=== PATIENT | male | born 2000 | race Caucasian/White ===

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

== ENCOUNTER 2022-04-01 18:06 | Emergency (ER) | payer OTHER, SELFPAY ==
--- NOTE | ~2022-04-01 | XR_ITS ---
XR chest 2V DATE: 04/01/2022 18:15 INDICATION: Cough. Covid-positive. TECHNIQUE: PA and lateral views COMPARISON: 10/06/2021 2 view chest FINDINGS: Bilateral hyperinflation. No pulmonary infiltrate or consolidation, pleural effusion or pul monary vascular congestion or pneumothorax. Normal heart size. No hilar or mediastinal enlargement. IMPRESSION: Bilateral hyperinflation; no active cardiopulmonary disease Reviewed, dictated and finalized at location A.
[2022-04-01 18:17] VITALS: BP 141/82; PULSE 90; RESP 16; TEMP 36.9; O2SAT 98
--- NOTE | 2022-04-01 18:26 | ED.URI ---
HPI - URI/Sore Throat General Chief Complaint: Upper Respiratory Infection Stated Complaint: + covid Time Seen by Provider: 04/01/22 18:30 Source: patient, RN notes reviewed and old records reviewed Mode of arrival: ambulatory Limitations: no limitations History of Present Illness HPI Narrative: 21 year male presents to [facility] with concerns of feeling somewhat short of breath today and he states that he was diagnosed with COVID today at [facility] and he was given RX for Paxlovid sent to [facility] pharmacy. Patient reports headache, body aches, sore throat, and body aches with some feelings of weakness and fatigue. Patient reports that he has not had any fevers that he is aware of or any chills or sweats. Patient verbalizes occasional cough denies any history of asthma but has had pneumonia in the past. Patient states that his symptoms started yesterday with a sore throat.Patient has not had COVID vaccinations or flu shot. MD elicited complaint: cough, sore throat and other (headache) Pertinent past history: pneumonia Onset (ago): day(s) (1) Pain scale (0-10): 4 Related Data Allergies Allergy/AdvReac Type Severity Reaction Status Date / Time Penicillins Allergy Intermediate Unknown Verified 04/01/22 18:18 Review of Systems Review of Systems: CONSTITUTIONAL: Denies ay known fever, chills, or sweats. EYES: Denies visual changes, redness, or discharge. ENT: Denies rhinorrhea, congestion, positive sore throat, no otalgia. CARDIOVASCULAR: Denies chest pain, palpitations, or edema. RESPIRATORY: Positive cough or dyspnea. GASTROINTESTINAL: Denies abdominal pain, nausea, vomiting, or diarrhea. GENITOURINARY: Denies dysuria or hematuria. SKIN: Denies rash or itching. MUSCULOSKELETAL: Denies back pain, joint pain, positive body aches NEUROLOGIC: Positive headache, no numbness, reports weakness and fatigue PSYCHIATRIC: Denies anxiety or depression. All systems reviewed & are unremarkable except as noted in HPI and below PMFSH Past Medical History Medical History (Updated 04/02/22 @ 22:41 by Courtney Noel NP) COVID-19 diagnosed 04/01/2022 Pneumonia Surgical History Surgical History (Updated 04/02/22 @ 22:41 by Courtney Noel NP) No history of previous surgery Social History Social History (Updated 04/02/22 @ 22:43 by Courtney Noel NP) Smoking status: Current some day smoker Tobacco type: cigarettes and e-cigarettes/vaping Alcohol intake: current Drinks per week: 1 Substance use type: marijuana Last use: occasional Living arrangements: with roommate(s) Gender identity (if verbalized by the patient): Male Comments At time of signature, agree with nursing past medical, surgical, social and family history. There is no relevant family history pertinent to the presenting complaint Exam Narrative: GENERAL: Well-appearing, well-nourished, and in no acute distress. HEAD: Normocephalic, atraumatic. EYES: PERRLA and EOMI. ENT: Nares clear, no rhinorrhea or epistaxis. Mucous membranes moist.TM's normal with good light reflex, throat red with no lesions or exudates, no tonsil swelling. NECK: Supple.no lymphadenopathy CHEST: Clear to auscultation. No respiratory distress.occasional cough noted, SAO2 98% on room air HEART: Regular rate and rhythm. No murmur heard. Normal peripheral pulses. ABDOMEN: Soft, nontender, nondistended, normal active bowel sounds. EXTREMITIES: Normal range of motion. No edema. SKIN: Warm, dry, no rash. NEURO: No focal deficits. Alert and oriented x3. Course Course Level of Care: Express Care Visit Vital Signs Vital signs: Vital Signs Temperature 36.9 C 04/01/22 18:17 Pulse Rate 90 04/01/22 18:17 Respiratory Rate 16 04/01/22 18:17 Blood Pressure 141/82 H 04/01/22 18:17 Pulse Oximetry 98 04/01/22 18:17 Temperature 36.9 C 04/01/22 18:17 Pulse Rate 90 04/01/22 18:17 Respiratory Rate 16 04/01/22 18:17 Blood Pressure 141/82 H 04/01
== END 2022-04-01 19:10 | disposition home or self-care (01) ==
PROVIDERS: Emergency Provider Registered Nurse; PCP Family Medicine
DX: U07.1 COVID-19 (principal); J06.9 Acute upper respiratory infection, unspecified; F17.290 Nicotine dependence, other tobacco product, uncomplicated
CPT/HCPCS: 71046; 99213; G0463